=== PATIENT | male | born 1980 | race Caucasian/White ===

== ENCOUNTER 2021-04-19 14:35 | Outpatient (REF) | payer OTHER, SELFPAY ==
[2021-04-19 16:37] LABS: MANUAL DIFF FLAG NO
[2021-04-19 16:41] LABS: Basophils Percent Auto 0.4 % (0-2); Eosinophils Absolute Auto 0.1 X10*3/uL (0.0-0.4); Eosinophils Percent Auto 1.6 % (0-4); Hematocrit 39.8 % (42-52); Hemoglobin 13.3 g/dl (14.0-18.0); Imm Gran Abs Auto 0.02 X10*3/uL (0.00-0.03); Imm Gran Pct Auto 0.3 % (0.0-0.4); Lymphocytes Absolute Auto 2.4 X10*3/uL (1.2-4.9); Lymphocytes Percent Auto 31.2 % (20-40); Mean Corpuscular HGB Conc 33.4 g/dl (31.0-36.0); Mean Corpuscular Volume 92.8 fL (80-98); Mean Platelet Volume 10.8 fL (9.4-12.4); Monocytes Absolute Auto 0.6 X10*3/uL (0.1-1.2); Monocytes Percent Auto 7.3 % (2-11); Neutrophils Absolute Auto 4.5 X10*3/uL (2.0-8.3); Neutrophils Percent Auto 59.2 % (45-73); Platelet Count 274 X10*3/uL (160-400); Red Blood Count 4.29 X10*6/uL (4.60-5.80); Red Cell Distribution Width 12.5 % (11.0-16.0); White Blood Count 7.5 X10*3/uL (4.8-10.8)
[2021-04-19 17:22] LABS: TSH reflex Free T4 0.91 uIU/mL (0.32-4.0)
[2021-04-19 17:27] LABS: Iron 104 mcg/dL (45-160); Percent Iron Saturation 34 % (15-50); Total Iron Binding Capacity 303 mcg/dL (228-428); Unsaturated Iron Binding 199 ug/dL
[2021-04-19 17:38] LABS: Alanine Aminotransferase 16 U/L (0-40); Albumin Level 4.6 g/dL (3.5-5.0); Alkaline Phosphatase 60 U/L (39-117); Anion Gap 14 (12-20); Aspartate Amino Transferase 20 U/L (5-37); Blood Urea Nitrogen 12 mg/dL (9-16); Calcium 9.7 mg/dL (8.4-10.2); Carbon Dioxide 28 mmol/L (22-29); Chloride 104 mmol/L (96-108); Cholesterol 184 mg/dL; Estimated Glomerular Filt Rate > 60; Glucose Random 46 mg/dL (60-115); HDL Cholesterol 55 mg/dL; LDL Cholesterol Calculated 107 mg/dl; Potassium 4.5 mmol/L (3.3-5.1); Sodium 141 mmol/L (135-145); Total Protein 7.5 g/dL (6.5-8.0); Triglycerides 114 mg/dL
[2021-04-19 17:47] LABS: Ferritin 71 ng/mL (20-250)
[2021-04-19 18:07] LABS: Folate 18.1 ng/mL (> or = 4.0); Vitamin B12 433 pg/mL (200-900)
== END 2021-04-19 14:36 | disposition home or self-care (01) ==
LOC: HO.HMGCLDS 14:35
PROVIDERS: PCP Nurse Practitioner Family; Visit Provider Nurse Practitioner Family
DX: E78.5 Hyperlipidemia, unspecified (principal); D64.9 Anemia, unspecified
CPT/HCPCS: 36415; 80053; 80061; 82607; 82728; 82746; 83540; 84443; 85025

== ENCOUNTER 2021-08-25 08:27 | Outpatient (REF) | payer OTHER, SELFPAY ==
[2021-08-25 11:26] LABS: MANUAL DIFF FLAG NO
[2021-08-25 11:37] LABS: Basophils Percent Auto 0.5 % (0-2); Eosinophils Absolute Auto 0.1 X10*3/uL (0.0-0.4); Eosinophils Percent Auto 1.6 % (0-4); Hematocrit 44.2 % (42-52); Hemoglobin 14.6 g/dl (14.0-18.0); Imm Gran Abs Auto 0.02 X10*3/uL (0.00-0.03); Imm Gran Pct Auto 0.3 % (0.0-0.4); Lymphocytes Absolute Auto 1.9 X10*3/uL (1.2-4.9); Lymphocytes Percent Auto 29.7 % (20-40); Mean Corpuscular Hemoglobin 30.4 pg (27.0-33.0); Mean Corpuscular Volume 91.9 fL (80-98); Mean Platelet Volume 10.8 fL (9.4-12.4); Monocytes Absolute Auto 0.5 X10*3/uL (0.1-1.2); Monocytes Percent Auto 7.7 % (2-11); Neutrophils Absolute Auto 3.8 X10*3/uL (2.0-8.3); Neutrophils Percent Auto 60.2 % (45-73); Platelet Count 267 X10*3/uL (160-400); Red Blood Count 4.81 X10*6/uL (4.60-5.80); Red Cell Distribution Width 12.7 % (11.0-16.0); White Blood Count 6.4 X10*3/uL (4.8-10.8)
[2021-08-25 11:52] LABS: Appearance Urine CLOUDY; Color Urine YELLOW; Glucose Urine UA NEG (NEG); Leukocyte Esterase Urine NEG (NEG); Nitrite Urine NEG (NEG); Specific Gravity - Urine >= 1.030 (1.005-1.025); UACC Culture Trigger NO; Urine Blood TRACE (NEG); Urine Ketones NEG (NEG); Urine Protein TRACE MG/DL (NEG-TRACE)
[2021-08-25 12:00] LABS: Alanine Aminotransferase 14 U/L (0-40); Albumin Level 4.6 g/dL (3.5-5.0); Alkaline Phosphatase 52 U/L (39-117); Anion Gap 13 (12-20); Aspartate Amino Transferase 16 U/L (5-37); Bilirubin Total 0.9 mg/dL (0.0-1.0); Blood Urea Nitrogen 14 mg/dL (9-16); Calcium 9.5 mg/dL (8.4-10.2); Carbon Dioxide 25 mmol/L (22-29); Chloride 106 mmol/L (96-108); Cholesterol 176 mg/dL; Estimated Glomerular Filt Rate > 60; Glucose Fasting 76 mg/dL (60-99); HDL Cholesterol 48 mg/dL; Iron 104 mcg/dL (45-160); LDL Cholesterol Calculated 116 mg/dl; Percent Iron Saturation 36 % (15-50); Potassium 4.5 mmol/L (3.3-5.1); Sodium 139 mmol/L (135-145); Total Iron Binding Capacity 286 mcg/dL (228-428); Total Protein 7.6 g/dL (6.5-8.0); Triglycerides 63 mg/dL; Unsaturated Iron Binding 182 ug/dL
[2021-08-25 12:10] LABS: Ferritin 58 ng/mL (20-250); TSH reflex Free T4 1.14 uIU/mL (0.32-4.0)
[2021-08-25 12:26] LABS: Amorphous Sediment Urine 1+ /LPF; Mucus Urine 1+ /LPF; RBC Urine 0 /HPF (0); WBC Urine 0 /HPF (0-4)
[2021-08-25 12:52] LABS: Vitamin B12 376 pg/mL (200-900)
== END 2021-08-25 08:28 | disposition home or self-care (01) ==
LOC: HO.HMGCLDS 08:27
PROVIDERS: PCP Nurse Practitioner Family; Visit Provider Nurse Practitioner Family
DX: Z00.00 Encounter for general adult medical examination without abnormal findings (principal); D64.9 Anemia, unspecified
CPT/HCPCS: 36415; 80053; 80061; 81001; 82607; 82728; 83540; 84443; 85025

== ENCOUNTER 2022-03-01 08:51 | Outpatient (RCR) | payer OTHER, SELFPAY ==
--- NOTE | 2022-03-01 12:22 | MHC.PT.EP ---
[facility] [place] Office [place] Office [place] Office [address] [facility] [place] [address] Zaynab Nguyen [address] [phone] F: [phone] F: [phone] F: [phone] F: [phone] Physical Therapy Plan of Care Date of Evaluation: Date of Surgery: NA Diagnosis: PAIN IN THORACIC SPINE Assessment: Pt IS 41 YO M REFERRED TO PT FROM DR CROWDER (AND AGREED BY DR PATE) WITH THORACIC PAIN (ALTHOUGH Pt REPORTS SINCE INIT VISIT PAIN HAS MOVED MORE INTO UPPER BACK/SCAP AREA AND NECK). WHICH HAS SIGNIFICANTLY DECREASED SINCE STARTING DEXAMETHASONE (HAS 4 DAYS LEFT). 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 REPORTS THE PAIN MAY HAVE COME FROM SOMETHING HE DID AT THE GYM. PRESENTS TO PT WITH BULKY PECS/UPPER BODY MUSCLES WITH GOOD CERV ROM, SHLDER ROM AND UE STRENGTH PER TESTING WITHOUT C/O INCREASE IN SXS. BENEFITTED FROM REV OF CURRENT EX/STRETCHING PROGRAM WITH RECOMMENDATIONS FOR MODIFICATIONS/ADDITIONS. SINCE WITHOUT SIGNIF SXS AT TIME OF EVAL/SIGNIF RELIEF WITH DEXAMETHASONE TRIAL, Pt WILL MONITOR SXS ONCE PRESCRIPTION IS DONE (4 DAYS) AND CALL TO SCHEDULE ANOTHER SESSION IF SXS HAVE RETURNED. Pt ED THAT CHART CAN BE LEFT OPENED FOR 2 WKS (IE WE WILL DC HIM IF WE DONT HEAR FROM HIM IN 2 WEEKS). OTHERWISE MAY NEED FURTHER INTERVENTION (INCLUDING ST WORK, FURTHER STRETCH/STRENGTHEN AND BODY MECH TRNG IF SXS RETURN) Frequency and Duration: The patient will be seen 1X/WK X 3- 4 WKS IF NECESSARY (IE RETURN OF SXS AFTER DEXAMETHASONE DONE) Short Term Goals: 1. INCREASED POSTURE AWARENESS AND AWARENESS NECK/BACK CARE 2. I HEP AND GOOD GYM PROGRAM MAINTAINING PROTECTION FOR BACK AND NECK 3. Pt TO REPORT NO RETURN OF SXS AFTER PRESCRIPTION DEXAMETHASONE DONE 4. CONTINUED ROM IN CERV SPINE AND STRENGTH IN UPPER BODY WNLS Half-Way Goals: Treatment Plan: Modalities to reduce pain, spasms and effusion. Manual therapy to restore motion and function. Therapeutic exercise to improve strength and flexibility. Neuromuscular re-education for posture and balance. Therapeutic activities to return to functional activities of daily living. Electronically signed by: JERMAN DASILVA PT Please sign and return to therapist. Thank you for your referral.
--- NOTE | 2022-03-27 14:38 | MHC.PT.DC ---
[facility] [place] Office [place] Office [place] Office [address] [facility] [address] Zaynab Nguyen [address] [phone] F: [phone] F: [phone] F: [phone] F: [phone] Physical Therapy Discharge Report Diagnosis: PAIN IN THORACIC SPINE Date of Surgery: NA Date of Evaluation: 03/01/22 Date of Discharge: 03/27/22 Treatments to Date: 1 Cancellations to Date: No Shows to Date: Discharge Status: Patient Elected to Stop Discharge Summary: Pt IS 41 YO M REFERRED TO PT FROM DR CROWDER (AND AGREED BY DR PATE) WITH THORACIC PAIN (ALTHOUGH Pt REPORTS SINCE INIT VISIT PAIN HAS MOVED MORE INTO UPPER BACK/SCAP AREA AND NECK). WHICH HAS SIGNIFICANTLY DECREASED SINCE STARTING DEXAMETHASONE (HAS 4 DAYS LEFT). 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 REPORTS THE PAIN MAY HAVE COME FROM SOMETHING HE DID AT THE GYM. PRESENTS TO PT WITH BULKY PECS/UPPER BODY MUSCLES WITH GOOD CERV ROM, SHLDER ROM AND UE STRENGTH PER TESTING WITHOUT C/O INCREASE IN SXS. BENEFITTED FROM REV OF CURRENT EX/STRETCHING PROGRAM WITH RECOMMENDATIONS FOR MODIFICATIONS/ADDITIONS. SINCE WITHOUT SIGNIF SXS AT TIME OF EVAL/SIGNIF RELIEF WITH DEXAMETHASONE TRIAL, Pt WILL MONITOR SXS ONCE PRESCRIPTION IS DONE (4 DAYS) AND CALL TO SCHEDULE ANOTHER SESSION IF SXS HAVE RETURNED. Pt ED THAT CHART CAN BE LEFT OPENED FOR 2 WKS (IE WE WILL DC HIM IF WE DONT HEAR FROM HIM IN 2 WEEKS). OTHERWISE MAY NEED FURTHER INTERVENTION (INCLUDING ST WORK, FURTHER STRETCH/STRENGTHEN AND BODY MECH TRNG IF SXS RETURN). AT THE DATE OF 03/27/22 Pt HAS NOT CALLED FOR FU SO WILL DC AT THIS TIME [ End ] Electronically signed by: JERMAN DASILVA PT Please sign and return to therapist. Thank you for your referral.
== END 2022-03-27 14:39 | disposition home or self-care (01) ==
LOC: HO.PTWFD 08:51
PROVIDERS: PCP Nurse Practitioner Family; Visit Provider Internal Medicine
DX: M54.6 Pain in thoracic spine (principal)
CPT/HCPCS: 97110; 97161; 97535

== ENCOUNTER 2022-03-28 13:38 | Outpatient (REF) | payer OTHER, SELFPAY ==
--- NOTE | ~2022-03-28 | XR_ITS ---
EXAMINATION: XR CERVICAL SPINE CLINICAL INFORMATION: Cervical disc disorder. Pain. COMPARISON: None. TECHNIQUE: 3 views of the cervical spine were obtained. FINDINGS: There is mild straightening of cervical lordosis. The vertebral heights and alignment are normal. There is loss of C6-C7 disc height with mild ventral and posterior spondylosis. The rest of the disc heights are normal. There is no visible acute fracture, dislocation or subluxation seen. There is calcification of posterior ligament nuchae posterior to C5 vertebra. The prevertebral and paravertebral soft tissues are normal. XR/XR cervical spine 2V IMPRESSION: Degenerative disc changes with ventral and posterior spondylosis C6-7 disc level. Mild straightening of cervical lordosis likely spasm. No acute fracture or dislocation seen.
== END 2022-03-28 13:39 | disposition home or self-care (01) ==
LOC: HO.XRAY 13:38
PROVIDERS: PCP Nurse Practitioner Family; Visit Provider Nurse Practitioner Family
DX: M50.90 Cervical disc disorder, unspecified, unspecified cervical region (principal)
CPT/HCPCS: 72040

== ENCOUNTER 2022-09-21 09:00 | Outpatient (RCR) | payer OTHER, SELFPAY | END 2022-10-23 13:32 | disposition home or self-care (01) | LOC: HO.PTWFD 09:00 | PROVIDERS: PCP Nurse Practitioner Family; Visit Provider Nurse Practitioner Family | DX: M50.90 Cervical disc disorder, unspecified, unspecified cervical region (principal) | CPT/HCPCS: 97014; 97110; 97140; 97161; 97535 ==

== ENCOUNTER → 2023-02-16 15:05 | Outpatient (BNVA) | payer OTHER, SELFPAY | PROVIDERS: PCP Nurse Practitioner Family; Visit Provider Nurse Practitioner Family | DX: Z13.89 Encounter for screening for other disorder (principal) ==

== ENCOUNTER 2023-03-20 09:51 | Outpatient (REF) | payer OTHER, SELFPAY ==
[2023-03-20 11:20] LABS: MANUAL DIFF FLAG NO
[2023-03-20 12:00] LABS: Basophils Absolute Auto 0.1 X10*3/uL (0.0-0.2); Basophils Percent Auto 0.6 % (0-2); Eosinophils Absolute Auto 0.2 X10*3/uL (0.0-0.4); Eosinophils Percent Auto 1.6 % (0-4); Hematocrit 45.6 % (42.0-52.0); Hemoglobin 15.4 g/dl (14.0-18.0); Imm Gran Abs Auto 0.06 X10*3/uL (0.00-0.03); Imm Gran Pct Auto 0.6 % (0.0-0.4); Lymphocytes Absolute Auto 3.6 X10*3/uL (1.2-4.9); Lymphocytes Percent Auto 37.4 % (20-40); Mean Corpuscular HGB Conc 33.8 g/dl (31.0-36.0); Mean Corpuscular Hemoglobin 30.6 pg (27.0-33.0); Mean Corpuscular Volume 90.7 fL (80.0-98.0); Mean Platelet Volume 10.4 fL (9.4-12.4); Monocytes Absolute Auto 0.8 X10*3/uL (0.1-1.2); Monocytes Percent Auto 7.9 % (2-11); Neutrophils Percent Auto 51.9 % (45-73); Platelet Count 285 X10*3/uL (160-400); Red Blood Count 5.03 X10*6/uL (4.60-5.80); White Blood Count 9.7 X10*3/uL (4.8-10.8)
[2023-03-20 12:10] LABS: Appearance Urine Clear; Color Urine Yellow; Glucose Urine UA Negative (Negative); Leukocyte Esterase Urine Trace (Negative); Nitrite Urine Negative (Negative); PH 5.5 (5.0-9.0); UMIC TRIGGER UACC YES; Urine Blood Negative (Negative); Urine Ketones Negative (Negative); Urine Protein Negative (Neg-Trace)
[2023-03-20 12:12] LABS: Bacteria Urine None Seen (None Seen); Hyaline Casts Urine 0-2 /LPF (0-2); RBC Urine 0-2 /HPF (0-2); Squamous Epithelial Cell Urine 0-2 /HPF (0-2); WBC Urine 0-5 /HPF (0-5)
[2023-03-20 13:37] LABS: Alanine Aminotransferase 23 U/L (0-40); Albumin Level 4.7 g/dL (3.5-5.0); Alkaline Phosphatase 75 U/L (39-117); Anion Gap 13 (12-20); Aspartate Amino Transferase 19 U/L (5-37); Bilirubin Total 0.5 mg/dL (0.0-1.0); Blood Urea Nitrogen 17 mg/dL (9-16); Calcium 9.9 mg/dL (8.4-10.2); Carbon Dioxide 27 mmol/L (22-29); Chloride 105 mmol/L (96-108); Cholesterol 215 mg/dL; Estimated Glomerular Filt Rate > 60; Glucose Fasting 77 mg/dL (60-99); HDL Cholesterol 43 mg/dL; LDL Cholesterol Calculated 155 mg/dl; Potassium 5.3 mmol/L (3.3-5.1); Sodium 140 mmol/L (135-145); Total Protein 7.7 g/dL (6.5-8.0); Triglycerides 87 mg/dL
[2023-03-20 14:01] LABS: TSH reflex Free T4 1.73 uIU/mL (0.32-4.0)
== END 2023-03-20 09:52 | disposition home or self-care (01) ==
LOC: HO.WFDLDS 09:51
PROVIDERS: Visit Provider Nurse Practitioner Family
DX: Z00.00 Encounter for general adult medical examination without abnormal findings (principal); F41.9 Anxiety disorder, unspecified; D64.9 Anemia, unspecified; E78.5 Hyperlipidemia, unspecified
CPT/HCPCS: 36415; 80053; 80061; 81001; 81003; 84443; 85025

== ENCOUNTER 2023-04-30 09:12 | Outpatient (REF) | payer OTHER, SELFPAY ==
[2023-04-30 12:00] LABS: Anion Gap 12 (12-20); Carbon Dioxide 26 mmol/L (22-29); Chloride 108 mmol/L (96-108); Potassium 4.6 mmol/L (3.3-5.1); Sodium 141 mmol/L (135-145)
== END 2023-04-30 09:13 | disposition home or self-care (01) ==
LOC: HO.WFDLDS 09:12
PROVIDERS: Visit Provider Nurse Practitioner Family
DX: E87.5 Hyperkalemia (principal)
CPT/HCPCS: 36415; 80051

== ENCOUNTER 2023-06-06 09:45 | Outpatient (AMB) | payer OTHER, SELFPAY ==
[2023-06-06 09:50] VITALS: BP 120/86; PULSE 72; O2SAT 97; BMI 34.7
--- NOTE | 2023-06-06 09:50 | MHC.PC.OV ---
Vital Signs 06/06/23 09:50 Height 6 ft 3 in Weight 278 lb BMI 34.7 BP 120/86 Blood Pressure Location Rt brachial Position Sitting Pulse 72 Pulse Source Pulse Oximeter Pulse Oximetry (%) 97 Oxygen Delivery Method Room Air Intake Visit Reasons: 6 Month follow up Allergies No Known Allergies Allergy (Verified 06/06/23 12:05) Medication List - Last Reconciled 06/06/23 by Sheldon Florence TRAINING AND DEVELOPMENT DIRECTOR- diphenhydramine-acetaminophen 25-500 mg (Tylenol PM Extra Strength) 2 tabs PO BEDTIME PRN gabapentin 400 mg PO BEDTIME multivitamin 1 tab PO DAILY sertraline 50 mg PO DAILY 90 days Tobacco use date assessed: 06/06/23 Dental Screening Dental Screen Date: 06/06/23 Did you have a dental visit in the last 12 months?: No Did you have a dental problem in the last 6 months where you did not have access to dental care?: No Was dental information given to patient?: Patient has dentist HPI 6 Month follow up HPI Details Pt is currently taking gabapentin for body aches and mood. He increased this to 400mg every other day which is helping. Pt would like this increased again. Will increase to 400mg daily. Pt is also taking sertraline 50mg. Denies any SI and HI. [facility] Medical History History of ETOH abuse Surgical History History of tonsillectomy Family History Father Family history of heart attack Mother EtOH dependence Other Mental health disorder Substance use disorder Social History Housing: Apartment Alcohol intake: unknown Patient Tobacco Use Status: Current everyday Tobacco user Cigarettes Per Day: 10 e-Cigarette/Vaping Use: Never Used Second Hand Smoke Exposure: Yes Current occupational status: employed Cognitive needs: No Hearing needs: No Vision needs: No Questionnaire Thrive Questionnaire Date Thrive assessed: 12/07/22 CINDY-7 AMB Questionnaire CINDY-7 Date CINDY - 7 assessed: 12/07/22 Source: Developed by Drs. Shalom Barraza, Sandhya Luna, José Miguel Hinton and colleagues, with an educational ivan from [employer]. Review of Systems Const Reports as per HPI Physical exam (Primary Care) Vital Signs: Last Vital Signs Pulse 72 06/06/23 09:50 BP 120/86 06/06/23 09:50 Pulse Ox 97 06/06/23 09:50 Oxygen Delivery Method Room Air 06/06/23 09:50 BMI result Body Mass Index 34.7 Tobacco/Smoking Status: Tobacco use Status Tobacco use date assessed 06/06/23 06/06/23 09:54 Patient Tobacco Use Status Current everyday Tobacco 06/06/23 09:54 e-Cigarette/Vaping Use Never Used 06/06/23 09:54 Thrive Assessment: Date of Thrive Assessment Date Thrive assessed 12/07/22 06/06/23 09:54 Const General: cooperative Nutritional Appearance: obese Orientation/consciousness: patient oriented x3 Resp Effort & Inspection: normal respiratory effort Auscultation: clear to auscultation bilaterally Cardio Rate: regular rate Rhythm: regular rhythm Heart sounds: S1 normal heart sound present and S2 normal heart sound present Neuro General: patient oriented x3 Psych Appearance: grossly normal Mental Status: mental status grossly normal Speech and movement: Normal speech and movement present Affect: normal affect Attitude: cooperative Thought process: Normal thought process present Thought content: Normal thought content present Insight: Good insight present (Psych) Judgement: Good judgement present (Psych) Assessment and Plan Assessment & Plan (1) Anxiety: Code(s): F41.9 - Anxiety disorder, unspecified Plan: Increased gabapentin to 400mg daily (2) Mood disorder: Code(s): F39 - Unspecified mood [affective] disorder Plan: Increased gabapentin to 400mg daily Plan The patient agreed to the use of a medical surgery nurse for this encounter. Scribed for BORIS Nazario by Atiya Fragoso medical surgery nurse, on 06/06/2023 at 10:25 EST. Orders: Orders Comprehensive Met. Panel Today F39 - Unspecified mood [affective] disorder, F41.9 - Anxiety disorder, unspecified Medications: Changed From gabapentin 100 mg PO BID 60 caps 5RF To gabapentin 400 mg PO BEDTIME 30 caps 5RF Coding Level of Care Code Est Pt Level 3 (03140) Diagnoses Anxiety F41.9 Mood disorder F39
== END 2023-06-06 11:37 | disposition home or self-care (01) ==
PROVIDERS: Visit Provider Nurse Practitioner Family
DX: F41.9 Anxiety disorder, unspecified (principal); F39 Unspecified mood [affective] disorder
CPT/HCPCS: 99213

== ENCOUNTER 2024-03-11 10:48 | Outpatient (REF) | payer OTHER, SELFPAY ==
[2024-03-11 12:45] LABS: Alanine Aminotransferase 21 U/L (0-40); Albumin Level 4.5 g/dL (3.5-5.0); Alkaline Phosphatase 72 U/L (39-117); Anion Gap 11 (12-20); Aspartate Amino Transferase 19 U/L (5-37); Bilirubin Total 0.4 mg/dL (0.0-1.0); Blood Urea Nitrogen 20 mg/dL (9-16); Calcium 9.2 mg/dL (8.4-10.2); Carbon Dioxide 26 mmol/L (22-29); Chloride 106 mmol/L (96-108); Estimated Glomerular Filt Rate > 60; Glucose Random 76 mg/dL (60-115); Potassium 4.4 mmol/L (3.3-5.1); Sodium 139 mmol/L (135-145); Total Protein 7.7 g/dL (6.5-8.0)
== END 2024-03-11 10:49 | disposition home or self-care (01) ==
LOC: HO.LAB 10:48
PROVIDERS: PCP Nurse Practitioner Family; Visit Provider Nurse Practitioner Family
DX: F41.9 Anxiety disorder, unspecified (principal); F39 Unspecified mood [affective] disorder
CPT/HCPCS: 36415; 80053

== ENCOUNTER 2024-03-12 08:56 | Outpatient (AMB) | payer OTHER, SELFPAY ==
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
[2024-03-12 09:02] VITALS: BP 124/90; PULSE 54; O2SAT 99
[2024-03-12 09:49] VITALS: BP 120/90
== END 2024-03-12 10:05 | disposition home or self-care (01) ==
PROVIDERS: PCP Nurse Practitioner Family; Visit Provider Nurse Practitioner Family
DX: Z00.00 Encounter for general adult medical examination without abnormal findings (principal); R31.29 Other microscopic hematuria; M54.6 Pain in thoracic spine; Z12.11 Encounter for screening for malignant neoplasm of colon
CPT/HCPCS: 99396

== ENCOUNTER 2024-05-14 07:59 | Outpatient (REF) | payer OTHER, SELFPAY ==
--- NOTE | ~2024-05-14 | CT_ITS ---
EXAMINATION: CT ABDOMEN AND PELVIS WITHOUT AND WITH CONTRAST CLINICAL INFORMATION: Microscopic hematuria. COMPARISON: None available. TECHNIQUE: Noncontrast CT of the abdomen and pelvis is performed followed by split bolus contrast-enhanced images using 85 mL Omnipaque 350 contrast.? Postcontrast imaging is performed during the combined nephrogram and excretion phase. Sagittal and coronal reformatted images were obtained on the technologist's workstation for both the precontrast and postcontrast phases. This CT examination was performed using dose optimization techniques as appropriate, variously including the following: *Automated exposure control *Adjustment of mA and/or kV according to patient size (this includes techniques or standardized protocols for targeted exams where dose is matched to indication/reason for exam; i.e. extremities or head) *Use of iterative reconstruction technique DLP: 350 mGy-cm FINDINGS: LUNG BASES: The visualized lung bases are unremarkable. LIVER, GALLBLADDER, AND BILIARY TREE: The liver is normal in size, shape, and attenuation. No focal hepatic lesion or biliary ductal dilatation is present. The gallbladder is unremarkable with no evidence of radiopaque gallstones, gallbladder wall thickening, or obvious pericholecystic inflammatory changes. PANCREAS: Unremarkable. SPLEEN: Unremarkable. ADRENAL GLANDS: Unremarkable. KIDNEYS AND URETERS: The kidneys are normal in size, shape, and attenuation. No hydronephrosis, hydroureter, or calculi seen. The left ureter is nonopacified but is of normal caliber. No perinephric stranding. BLADDER: Unremarkable. GASTROINTESTINAL TRACT: The small and large bowel are unremarkable. The appendix is unremarkable. ABDOMINAL WALL: No significant hernia is appreciated. LYMPH NODES: Normal. VASCULAR: Unremarkable. PELVIC VISCERA: There is [id number] BPH. Prominent median lobe indents the bladder. Seminal vesicles are unremarkable. OSSEUS STRUCTURES: Unremarkable. CT/CT urogram IMPRESSION: 1. A cause for the patient's microscopic hematuria has not been found. 2. Incidental note made of mild to moderate BPH.
--- NOTE | ~2024-05-14 | XR_ITS ---
EXAMINATION: XR THORACOLUMBAR SPINE CLINICAL INFORMATION: Pain in thoracic spine. COMPARISON: Cervical spine 03/28/2022. TECHNIQUE: 4 views of the thoracic spine. FINDINGS: Degenerative changes on very limited images of the cervical spine could be evaluated with dedicated cervical spine radiographs. Mild dextroscoliosis of the thoracolumbar spine. Mild multilevel degenerative changes in the thoracic spine. XR/XR thoracic spine 2V IMPRESSION: Mild multilevel degenerative changes in the thoracic spine.
[2024-05-14] MEDS: iohexoL 350 MG/ML 100 ML INFUS..BTL IV (08:53)
== END 2024-05-14 08:00 | disposition home or self-care (01) ==
LOC: HO.CT 07:59
PROVIDERS: PCP Nurse Practitioner Family; Visit Provider Nurse Practitioner Family
DX: R31.29 Other microscopic hematuria (principal); M54.6 Pain in thoracic spine
CPT/HCPCS: 72070; 74178; Q9967

== ENCOUNTER 2024-06-23 08:15 | Outpatient (AMB) | payer OTHER, SELFPAY ==
--- NOTE | 2024-06-23 08:20 | MHC.PC.OV ---
Vital Signs 06/23/24 08:22 Weight 275 lb BP 122/80 Blood Pressure Location Rt brachial Position Sitting Pulse 64 Pulse Source Pulse Oximeter Pulse Oximetry (%) 98 Oxygen Delivery Method Room Air Intake Visit Reasons: 3- 4 month follow up Intake Note: Patient here to follow up on back pain. Allergies No Known Allergies Allergy (Verified 06/23/24 08:23) Medication List - Last Reconciled 06/23/24 by BORIS Arroyo gabapentin 600 mg (2 x 300 mg) PO BEDTIME 30 days ibuprofen 800 mg PO Q8H multivitamin 1 tab PO DAILY sertraline 50 mg PO DAILY 90 days Tobacco use date assessed: 03/12/24 Dental Screening Dental Screen Date: 03/12/24 HPI 3- 4 month follow up HPI Details anxiety and depression: Doing well on sertraline, and has a therapist. Denies any SI or HI. pt does have a stressful job, but managing. [facility] Medical History History of ETOH abuse Surgical History History of tonsillectomy Family History Father Family history of heart attack Mother EtOH dependence Other Mental health disorder Substance use disorder Social History Housing: Apartment Alcohol intake: unknown Patient Tobacco Use Status: Current everyday Tobacco user Cigarettes Per Day: 10 e-Cigarette/Vaping Use: Never Used Second Hand Smoke Exposure: Yes Current occupational status: employed Cognitive needs: No Hearing needs: No Vision needs: No Questionnaire PHQ-9 Over the last 2 weeks, how often have you been bothered by any of the following problems? 52791 - PHQ-9 Billing: Patient declined-do not bill Source: Developed by Drs. Shalom Barraza, Sandhya Luna, José Miguel Hinton and colleagues, with an educational ivan from [employer] Thrive Questionnaire Date Thrive assessed: 06/16/24 I am a: Patient What is your living situation today?: I have a steady place to live Within the past 12 months, did the food you bought not last and you didn't have the money to get more?: Never true Within the past 12 months, did you worry whether your food would run out before you got money to buy more?: Never true Do you have trouble paying for medicines?: No Do you have trouble getting transportation to medical appointments?: No Do you have trouble paying your heating and electricity bill?: No Do you have trouble taking care of your child, family member or friend?: No Do you have trouble with day-to-day activities such as bathing, preparing meals, shopping, managing finances, etc.?: No Are you currently unemployed and looking for a job?: No Are you interested in more education?: No Please select the resources that you would like help with: Housing/Senior Care Currently or been in a relationship where the following occur: No concerns reported THRIVE Score: 0 AUDIT C Alcohol Use Questionnaire (AUDIT-C) 1. How often do you have a drink containing alcohol?: Never 2. How many drinks containing alcohol do you have on a typical day when you are drinking?: 10 or more 3. How often do you have six or more drinks on one occasion?: Never Total Score: 4 CINDY-7 AMB Questionnaire CINDY-7 Date CINDY - 7 assessed: 03/12/24 Feeling nervous, anxious, or on edge: 1 = Several days Not being able to stop or control worryin = Not at all Worrying too much about different things: 1 = Several days Trouble relaxin = Several days Being so restless that it is hard to sit still: 0 = Not at all Becoming easily annoyed or irritable: 1 = Several days Feeling afraid as if something awful might happen: 0 = Not at all Total CINDY-7 score (0-4 normal; 5-9 mild; 10-14 moderate; 15-21 severe): 4 Source: Developed by Drs. Shalom Barraza, Sandhya Luna, José Miguel Hinton and colleagues, with an educational ivan from [employer]. CINDY-7 Assessment Billing CINDY-7 Assessment Tool: pt declined-do not bill Physical exam (Primary Care) Tobacco/Smoking Status: Tobacco use Status Tobacco use date assessed 03/12/24 06/23/24 08:22 Patient Tobacco Use Status Current everyday Tobacco 06/23/24 08:22 e-Cigarette/Vaping Use Never Used 06/23/24 08:22 Thrive Assessment: Date of Thrive Assessment Date Thrive assessed 06/16/24 06/23/24 08:22 Currently or been in a relationship where the following occur: No concerns reported Const General: cooperative, healthy appearing and comfortable Resp Effort & Inspection: normal respiratory effort Auscultation: clear to auscultation bilaterally Cardio Rate: regular rate Rhythm: regular rhythm Heart sounds: S1 normal heart sound present and S2 normal heart sound present Psych Appearance: grossly normal Mental Status: mental status grossly normal Speech and movement: Normal speech and movement present Affect: normal affect Attitude: cooperative Thought process: Normal thought process present Thought content: Normal thought content present Insight: Good insight present (Psych) Judgement: Good judgement present (Psych) Assessment and Plan Assessment & Plan (1) Anxiety: Code(s): F41.9 - Anxiety disorder, unspecified Plan: stable currently (2) Anxiety and depression: Code(s): F41.9 - Anxiety disorder, unspecified; F32.A - Depression, unspecified Plan: cont sertraline at current dose Coding Level of Care Code Est Pt Level 3 (49379) Diagnoses Anxiety F41.9 Anxiety and depression F41.9; F32.A
[2024-06-23 08:22] VITALS: BP 122/80; PULSE 64; O2SAT 98
== END 2024-06-23 10:36 | disposition home or self-care (01) ==
LOC: HO.HMGC 08:15
PROVIDERS: PCP Nurse Practitioner Family; Visit Provider Nurse Practitioner Family
DX: F41.9 Anxiety disorder, unspecified (principal); F32.A Depression, unspecified
CPT/HCPCS: 99213

== ENCOUNTER 2025-04-02 08:16 | Outpatient (AMB) | payer OTHER, SELFPAY ==
[2025-04-02 08:21] VITALS: BP 122/80; PULSE 65; O2SAT 97; BMI 34.6
--- NOTE | 2025-04-02 08:21 | A.OFFPC_ITS ---
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 Accompanied by: Self / Same As Patient Allergies No Known Allergies Allergy (Verified 04/02/25 09:11) Medication List - Last Reconciled 04/02/25 by PHUONG Arroyo gabapentin 600 mg (2 x 300 mg) PO BEDTIME 30 days ibuprofen 800 mg PO Q8H multivitamin 1 tab PO DAILY sertraline 50 mg PO DAILY 90 days Tobacco use date assessed: 04/02/25 Dental Screening Dental Screen Date: 04/02/25 Did you have a dental visit in the last 12 months?: Yes Did you have a dental problem in the last 6 months where you did not have access to dental care?: No Was dental information given to patient?: Patient has dentist HPI Physical exam HPI Details History of Present Illness The patient is a 44-year-old male presenting for a wellness physical exam. He states he is generally well and maintains regular visits with a therapist. The patient admits to ongoing tobacco use, understanding the health risks involved. He reports no symptoms of fever, chest pain, or abdominal issues, and denies gastrointestinal symptoms such as blood in stool, constipation, or diarrhea. Past referrals to a paraprofessional aide were unsuccessful due to canceled appointments, leading to the decision to initiate a Cologuard screening. The patient has no reported family history of colon or pancreatic cancer. Health Maintenance - Regular gatherings with a mental healt h therapist - Encouraged to pursue tobacco cessation strategies - Initiation of Cologuard screening due to unsuccessful paraprofessional aide appointments - Encouragement to proceed with routine laboratory tests in the near future Social History - Smokes tobacco consistently, with awar eness of associated health risks Review of Systems - Respiratory: Denies shortness of breat h, chest pain - Gastrointestinal: Denies abdominal shellie n, blood in stool, constipation, diarrhea - General: Denies fevers Physical Exam General: Cooperative, healthy appearing, comfortable, no acute distress and well developed Orientation: Patient oriented x3 Limitations: No limitations Head: Normal to inspection Ears: Hearing grossly normal bilaterally Nose: Normal external nose present Face and sinus: Normal facial exam Eyes: Appearance normal, both eyes and all related structures Neck: Normal visual inspection and Yes full ROM Respiratory: Normal respiratory effort and able to speak in complete sentences. Clear to auscultation bilaterally Cardiovascular: Regular rate and rhythm. Normal S1 and S2 GI: Normal to inspection. Soft to palpation and nontender Skin: No rashes or lesions noted Neuro: Patient oriented x3 Extremities: Normal to inspection Results Plan For the patient's continued tobacco use, I suggested cessation measures due to understanding its risks. He agreed to undertake Cologuard testing because of appointment cancellations with a paraprofessional aide. With no family history of colon or pancreatic cancer, routine labs were recommended soon. The patient is to persist with regular therapy for mental health support and given the benign exam findings, no further interventions are necessary currently. Discussion Notes I reviewed the potential health risks associated with continued tobacco use and encouraged cessation. We discussed Cologuard as a colorectal screening alternative given the patient's canceled gastroenterology appointments. The patient agreed to pursue this, noting no family history of related cancers. I emphasized the value in continued therapist consultations for mental health and recommended routine lab evaluations to be completed soon. I ensured the patient understood the planned interventions and importance of ongoing preventive care. Patient Instructions - Continue regular mental health therapy sessions. - Consider reducing or quitting smoking due to health risks. - Follow through with the Cologuard test for colon cancer screening. - Plan for routine laboratory tests soon . [facility] Medical History History of ETOH abuse Surgical History History of tonsillectomy Family History Father Family history of heart attack Mother EtOH dependence Other Mental health disorder Substance use disorder Social History Housing: Apartment Alcohol intake: unknown Patient Tobacco Use Status: Current everyday Tobacco user Cigarettes Per Day: 10 e-Cigarette/Vaping Use: Never Used Second Hand Smoke Exposure: Yes Current occupational status: employed Cognitive needs: No Hearing needs: No Vision needs: No Questionnaire PHQ-9 Over the last 2 weeks, how often have you been bothered by any of the following problems? 1. Little interest or pleasure in doing things: not at all 2. Feeling down, depressed, or hopeless: not at all 3. Trouble falling or staying asleep, or sleeping too much: not at all 4. Feeling tired or having little energy: not at all 5. Poor appetite or overeating: not at all 6. Feeling bad about yourself - or that you are a failure or have let yourself or your family down: not at all 7. Trouble concentrating on things, such as reading the newspaper or watching television: not at all 8. Moving or speaking so slowly that other people could have noticed. Or the opposite - being so fidgety or restless that you have been moving around a lot more than usual: not at all 9. Thoughts that you would be better off or of hurting yourself in some way: not at all Total score: 0 Depression Screening Interpretation: Negative Depression Screening Done: Yes 70925 - PHQ-9 Billing: Yes Source: Developed by Drs. Shalom Barraza, Sandhya Luna, José Miguel Hinton and colleagues, with an educational ivan from [employer]. Thrive Questionnaire Date Thrive assessed: 04/02/25 I am a: Patient What is your living situation today?: I have a steady place to live Within the past 12 months, did the food you bought not last and you didn't have the money to get more?: Never true Within the past 12 months, did you worry whether your food would run out before you got money to buy more?: Never true Do you have trouble paying for medicines?: No Do you have trouble getting transportation to medical appointments?: No Do you have trouble paying your heating and electricity bill?: No Do you have trouble taking care of your child, family member or friend?: No Do you have trouble with day-to-day activities such as bathing, preparing meals, shopping, managing finances, etc.?: No Are you currently unemployed and looking for a job?: No Are you interested in more education?: No Please select the resources that you would like help with: None Currently or been in a relationship where the following occur: No concerns reported THRIVE Score: 0 AUDIT C Alcohol Use Questionnaire (AUDIT-C) 1. How often do you have a drink containing alcohol?: Monthly or less 2. How many drinks containing alcohol do you have on a typical day when you are drinking?: 10 or more 3. How often do you have six or more drinks on one occasion?: Never Total Score: 5 Score Reviewed/Action Taken: Yes (hasnt drank in 3 years, according to pt) CINDY-7 AMB Questionnaire CINDY-7 Date CINDY - 7 assessed: 04/02/25 Feeling nervous, anxious, or on edge: 0 = Not at all Not being able to stop or control worryin = Not at all Worrying too much about different things: 0 = Not at all Trouble relaxin = Not at all Being so restless that it is hard to sit still: 0 = Not at all Becoming easily annoyed or irritable: 0 = Not at all Feeling afraid as if something awful might happen: 0 = Not at all Total CINDY-7 score (0-4 normal; 5-9 mild; 10-14 moderate; 15-21 severe): 0 Source: Developed by Drs. Shalom Barraza, Sandhya Luna, José Miguel Hinton and colleagues, with an educational ivan from [employer]. CINDY-7 Assessment Billing CINDY-7 Assessment Tool: CINDY-7 Assessment 09498 Physical exam (Primary Care) Vital Signs: Last Vital Signs Pulse 65 04/02/25 08:21 BP 122/80 04/02/25 08:21 Pulse Ox 97 04/02/25 08:21 Oxygen Delivery Method Room Air 04/02/25 08:21 BMI result Body Mass Index 34.6 Tobacco/Smoking Status: Tobacco use Status Tobacco use date assessed 04/02/25 04/02/25 08:24 Patient Tobacco Use Status Current everyday Tobacco 04/02/25 08:21 e-Cigarette/Vaping Use Never Used 04/02/25 08:21 PHQ-9: PHQ-9 Score PHQ-9: Total score 0 04/02/25 08:24 Depression Screening Interpretation: Negative Thrive Assessment: Date of Thrive Assessment Date Thrive assessed 04/02/25 04/02/25 08:24 Currently or been in a relationship where the following occur: No concerns reported Coding Level of Care Code Est Pt Prev Care 40-64y(94286) Diagnoses Physical exam Z00.00 Screening for prostate cancer Z12.5 Additional Codes CINDY-7 Assessment Billing - CINDY-7 Assessment Tool: CINDY-7 Assessment 96255 ([id number]) PHQ-9 - 31179 - PHQ-9 Billing: Yes ([id number]) Assessment & Plan Assessment & Plan (1) Physical exam: Code(s): Z00.00 - Encounter for general adult medical examination without abnormal findings Category: Medical (2) Screening for prostate cancer: Code(s): Z12.5 - Encounter for screening for malignant neoplasm of prostate Category: Medical Plan . Orders: Orders Complete Blood Count Auto Diff Today Z00.00 - Encounter for general adult medical examination without abnormal findings Comprehensive [place]. Panel Fast Today Z00.00 - Encounter for general adult medical examination without abnormal findings TSH reflex Free T4 Today Z00.00 - Encounter for general adult medical examination without abnormal findings UA CC w/rflx Micro + Cult Today Z00.00 - Encounter for general adult medical examination without abnormal findings Lipid Panel Today Z00.00 - Encounter for general adult medical examination without abnormal findings Prostate Specific Antigen Scr Today Z00.00 - Encounter for general adult medical examination without abnormal findings, Z12.5 - Encounter for screening for malignant neoplasm of prostate Referrals Cologuard Test Z12.11 - Encounter for screening for malignant neoplasm of colon, Z12.12 - Encounter for screening for malignant neoplasm of rectum Medications: Changed From gabapentin 600 mg (2 x 300 mg) PO BEDTIME 30 days 60 caps 4RF To gabapentin 800 mg (2 x 400 mg) PO BEDTIME 30 days 60 caps 4RF
== END 2025-04-02 09:12 | disposition home or self-care (01) ==
LOC: HO.HMCC 08:16
PROVIDERS: PCP Nurse Practitioner Family; Visit Provider Nurse Practitioner Family
DX: Z00.00 Encounter for general adult medical examination without abnormal findings (principal); Z12.5 Encounter for screening for malignant neoplasm of prostate

== ENCOUNTER → 2025-04-02 08:16 | Outpatient (BNVA) | payer OTHER, SELFPAY | PROVIDERS: PCP Nurse Practitioner Family; Visit Provider Nurse Practitioner Family | DX: Z00.00 Encounter for general adult medical examination without abnormal findings (principal) | CPT/HCPCS: 96127 ==